=== PATIENT | male | born 1985 | race Two or more races ===

== ENCOUNTER 2021-12-13 11:49 | Emergency (ER) | payer OTHER ==
[~2021-12-13] VITALS: Ht 170.2 cm; Wt 88.0 kg
[2021-12-13 12:11] VITALS: BP 141/79
[2021-12-13] MEDS ORDERED: CARI350T PO (12:52)
--- NOTE | 2021-12-13 13:14 | NUR ---
Patient discharged to home in stable condition. Written and verbal after care instructions given. Patient verbalizes understanding of instruction.
== END 2021-12-13 13:16 | disposition home or self-care (01) ==
LOC: ER 11:56
DX: S29.012A Strain of muscle and tendon of back wall of thorax, initial encounter (principal); Z79.899 Other long term (current) drug therapy; X58.XXXA Exposure to other specified factors, initial encounter; Y93.89 Activity, other specified; Y92.89 Other specified places as the place of occurrence of the external cause; Y99.8 Other external cause status
CPT/HCPCS: 71045-TC

== ENCOUNTER 2024-03-12 08:45 | Emergency (ER) | payer OTHER ==
[~2024-03-12] VITALS: Ht 170.2 cm; Wt 92.5 kg
[~2024-03-12 08:45] MED LIST: CARI350T PO
[2024-03-12 09:04] VITALS: TEMP 98.2
[2024-03-12] MEDS ORDERED: HYDR-4303 PO (09:48)
[2024-03-12] MEDS ORDERED: CYCL5TAB PO (09:48)
[2024-03-12] MEDS ORDERED: LIDO30AD10 TP (09:48)
[2024-03-12] MEDS ORDERED: IBUP-1955 PO (09:48)
[2024-03-12] MEDS ORDERED: METH4TAB3 PO (09:48)
[2024-03-12] MEDS ORDERED: LIDOCAINE 5% (PATCH) 1 EA PATCH TP ONE (09:56)
[2024-03-12] MEDS ORDERED: HYDROCODONE/APAP 5/325MG TABLET ONE (09:56)
[2024-03-12] MEDS ORDERED: CYCLOBENZAPRINE 10 MG TABLET ONE (09:56)
[2024-03-12] MEDS ORDERED: KETOROLAC TROMETHAMINE 15 MG/ML VIAL ONE (09:57)
[2024-03-12] MEDS ORDERED: dexaMETHasone SOD PHOSPHATE 1 ML ONE (10:00)
[2024-03-12] MEDS: dexaMETHasone SOD PHOSPHATE 10 MG/ML VIAL IM ONE (10:06)
[2024-03-12] MEDS: LIDOCAINE 5% (PATCH) 1 EA PATCH TP STA (10:07)
[2024-03-12] MEDS: HYDROCODONE/APAP 5/325MG TABLET PO ONE (10:07)
[2024-03-12] MEDS: KETOROLAC TROMETHAMINE 15 MG/ML VIAL IM ONE (10:07)
[2024-03-12] MEDS: CYCLOBENZAPRINE 10 MG TABLET PO ONE (10:08)
[2024-03-12 10:30] VITALS: BP 134/87; O2SAT 99
== END 2024-03-12 10:18 | disposition home or self-care (01) ==
LOC: ER 08:47
DX: M54.41 Lumbago with sciatica, right side (principal); Z79.899 Other long term (current) drug therapy
CPT/HCPCS: 99284; 96372 ×2; J1100; J1885